=== PATIENT | female | born 1985 | race African-American/Black ===

== ENCOUNTER 2018-12-31 09:51 | Emergency (ER) | payer SELFPAY ==
[~2018-12-31] VITALS: Ht 172.7 cm; Wt 130.0 kg
[~2018-12-31 09:51] MED LIST: PT DENIES
[2018-12-31 10:05] VITALS: Ht 172.7 cm; Wt 130.0 kg
[2018-12-31] MEDS ORDERED: SOD CHLORIDE 0.9% 1,000 ML IV STA (10:10)
[2018-12-31] MEDS ORDERED: ONDANSETRON 4 MG INJ IV STA (10:10)
[2018-12-31] MEDS ORDERED: MECLIZINE 12.5 MG TAB PO ONE (10:30)
[2018-12-31] MEDS ORDERED: LORAZEPAM 2 MG INJ IM ONE (11:00)
[2018-12-31 13:30] VITALS: BP 150/100; PULSE 100; RESP 20
--- NOTE | 2018-12-31 13:56 | ERD ---
ER Documentation Chief Complaint Chief Complaint BIB RA FOR EVAL OF DIZZINESS, COUGH. PT HOMELESS HPI This is a 33-year-old female who is homeless and has multiple complaints. She complains of dizziness. She complains of a nonproductive cough. She also indicates that she utilizes crystal meth. She also states that she has been experiencing a diffuse pruritus. She states she is feeling very anxious. She denies any chest pain. She denies any fever shaking or chills. She denies any suicidal homicidal thoughts or ideations. She denies any auditory tactile visual hallucinations. She has no shortness of breath at rest or exertion. ROS All systems reviewed and are negative except as per history of present illness. Medications Home Meds Reported Medications [Pt Denies] No Conflict Check 12/28/10 Allergies Allergies: Coded Allergies: No Known Drug Allergies (Verified Allergy, Mild, 12/28/10) PMhx/Soc Medical and Surgical Hx: pt denies Medical Hx, pt denies Surgical Hx History of Surgery: No Anesthesia Reaction: No Hx Neurological Disorder: No Hx Respiratory Disorders: No Hx Cardiac Disorders: No Hx Psychiatric Problems: No Hx Miscellaneous Medical Probl: No Hx Alcohol Use: No Hx Substance Use: No Hx Tobacco Use: No Smoking Status: Never smoker Physical Exam Vitals Vital Signs Date Temp Pulse Resp B/P (MAP) Pulse Ox O2 O2 Flow FiO2 Time Delivery Rate 12/31/18 96.9 100 20 150/100 98 Room Air 13:30 (117) 12/31/18 96.9 99 20 140/95 98 Room Air 12:13 (110) 12/31/18 96.9 100 20 134/109 98 Room Air 11:20 (117) 12/31/18 96.9 20 97 10:05 Physical Exam Constitutional:Well-developed. Very disheveled. HEENT:Normocephalic. Atraumatic.Pupils were equal round reactive to light. Moist mucous membranes.No tonsillar exudates. Multiple lice crawling on the patient's scalp and hair. Neck: No nuchal rigidity. No lymphadenopathy. No posterior cervical spine tenderness or step-offs. Respiratory: Not using accessory muscles of respiration.Lungs were clear to auscultation bilaterally. No rhonchi. No rales. No wheezing. Cardiovascular: Regular rate regular rhythm.No murmurs. No rubs were appreciated.S1, S2 normal. Distal pulses are palpable 2+ bilaterally. GI: Abdomen was soft. Nontender. Non Distended. No pulsatile abdominal masses or bruits. No rebound. No guarding. Bowel sounds were present and normal. Muscle skeletal: Full range of motion of both the upper and lower extremities bilaterally.Normal muscle tone.No assymetrical calf tenderness or swelling. Skin: No petechia, no purpura. No lesions on the palms or the soles of the feet. No maculopapular rash. Black dots with rice between the interdigital webspaces bilaterally extending into the back and abdomen. NEURO: Patient was alert, awake, orientated x3.No facial droop. Gait observed and normal with no ataxia.Speech had regular rate and rhythm. No focal neurological deficits. PSYCH: Patient appeared very agitated. Spoke very rapidly. Patient denied any suicidal homicidal ideations. No auditory tactile visual hallucinations. Result Diagram: 12/31/18 1246 12/31/18 1246 Results 24 hrs Laboratory Tests Test 12/31/18 12:10 12/31/18 12:46 Urine Opiates Screen Negative Urine Barbiturates Negative Urine Amphetamines Screen Negative Urine Benzodiazepines Screen Negative Urine Cocaine Screen Negative Urine Cannabinoids Negative White Blood Count 13.0 10^3/ul Red Blood Count 4.07 10^6/ul Hemoglobin 8.5 g/dl Hematocrit 29.4 % Mean Corpuscular Volume 72.2 fl Mean Corpuscular Hemoglobin 20.9 pg Mean Corpuscular Hemoglobin Concent 28.9 g/dl Red Cell Distribution Width 19.9 % Platelet Count 347 10^3/UL Mean Platelet Volume 9.7 fl Immature Granulocytes % 0.800 % Neutrophils % 75.4 % Lymphocytes % 18.2 % Monocytes % 4.7 % Eosinophils % 0.5 % Basophils % 0.4 % Nucleated Red Blood Cells % 1.3 /100WBC Immature Granulocytes # 0.110 10^3/ul Neutrophils # 9.8 10^3/ul Lymphocytes # 2.4 10^3/ul Monocytes # 0.6 10^3/ul Eosinophils # 0.1 10^3/ul Basophils # 0.1 10^3/ul Nucleated Red Blood Cells # 0.2 10^3/ul Prothrombin Time 13.8 Sec Prothrombin Time Ratio 1.1 INR International Normalized Ratio 1.05 Sodium Level 143 mmol/L Potassium Level 4.4 mmol/L Chloride Level 113 mmol/L Carbon Dioxide Level 24 mmol/L Anion Gap 6 Blood Urea Nitrogen 30 mg/dl Creatinine 0.97 mg/dl Est Glomerular Filtrat Rate mL/min > 60 mL/min Glucose Level 103 mg/dl Lactic Acid Level 1.2 mmol/L Calcium Level 8.1 mg/dl Total Bilirubin 0.6 mg/dl Direct Bilirubin 0.00 mg/dl Indirect Bilirubin 0.6 mg/dl Aspartate Amino Transf (AST/SGOT) 30 IU/L Alanine Aminotransferase (ALT/SGPT) 35 IU/L Alkaline Phosphatase 76 IU/L Troponin I 0.070 ng/ml Total Protein 6.9 g/dl Albumin 3.2 g/dl Globulin 3.70 g/dl Albumin/Globulin Ratio 0.86 Amylase Level 62 U/L Lipase 74 U/L Salicylates Level < 1.0 mg/dl Acetaminophen Level < 10.0 ug/ml Ethyl Alcohol Level < 10.0 mg/dl Current Medications Medications Dose Sig/Ty Start Time Status Last (Trade) Ordered Route PRN Stop Time Admin Dose Reason Admin Sodium 1,000 ml @ Q1H STAT 12/31/18 Cancel Chloride 1,000 mls/hr IV 10:10 12/31/18 11:09 Ondansetron 4 mg ONCE STAT 12/31/18 Cancel HCl (Zofran IV 10:10 Inj) 12/31/18 10:11 Meclizine 25 mg ONCE ONCE 12/31/18 Cancel HCl PO 10:30 (Antivert) 12/31/18 10:31 Lorazepam 2 mg ONCE ONCE 12/31/18 DC 12/31/18 (Ativan) IM 11:00 11:19 12/31/18 11:01 Procedures/MDM This patient presented to the emergency department with acute psychosis and my differential diagnosis included but was not limited to ruling out life threatening causes of acute psychosis such as Wernickes encephalopathy, hypoxia, hypoglycemia, hypertensive encephalopathy, intracerebral hemorrhage, meningitis, poisoning. After my evaluation and workup on the patient I was able to exclude medical and reversible causes of the patients psychosis. It was my clinical impression the patients symptoms were an exacerbation of possible crystal meth use. Her urine drug screen was negative for amphetamines but she did states she utilized roughly 2 days ago. The patient was not a threat to herself or others. She had no suicidal homicidal thoughts or ideations. The patient was anemic but no signs of an upper or lower gastrointestinal bleed. She was given permethrin c ream. The patient was seen by a social media project manager and given outpatient resources. 12 Lead EKG tracing ordered and reviewed by myself showed: Sinus tach 106 bpm and no arrhythmia. SD interval normal. QRS duration normal. No ST segment elevation No ST segment depression. No changes consistent with acute ischemia. Departure Diagnosis: Primary Impression: Scabies Additional Impression: Psychosis Psychosis type: unspecified psychosis type Qualified Codes: F29 - Unspecified psychosis not due to a substance or known physiological condition Condition: CYNTHIA Díaz MD December 31, 2018 13:56
[2018-12-31] MEDS ORDERED: PERMETHRIN 5% 60 GM CR TOP ONE (14:00)
--- NOTE | 2019-01-01 14:30 | RADRPT ---
Vent Rate: 106 bpm RR Interval: 0 msec ME Interval: 148 msec QRS Duration: 74 msec QT Interval: 364 msec QTC Interval: 483 msec P-R-T [place]: 54 - 31 - 70 degrees Sinus tachycardia Low voltage QRS Cannot rule out Anterior infarct , age undetermined Abnormal ECG Electronically Signed By: [facility]
== END 2018-12-31 17:10 | disposition home or self-care (01) ==
LOC: E/R 09:51
DX: B86 Scabies (principal); F29 Unspecified psychosis not due to a substance or known physiological condition
CPT/HCPCS: 80053; 80307; 82150; 83605; 83690; 84484; 85025; 85610; 93005; 96372; 99284; J2060; J7030